=== PATIENT | male | born 1990 | race Caucasian/White ===

== ENCOUNTER 2017-07-27 03:23 | Emergency (ER) | payer BC ==
[2017-07-27] MEDS ORDERED: Lidocaine/EPINEPHrine/Tetracaine Soln 1 ML TOP STA (03:57)
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
[2017-07-27] MEDS ORDERED: Lidocaine 1% with EPINEPHrine 1:100,000 20 ML MDV INJECT ONE (06:43)
[2017-07-27] MEDS ORDERED: Bupivacaine 0.5%/EPINEPHrine 1:200,000 30 ML SDV INJECT ONE (06:44)
[2017-07-27] MEDS ORDERED: Bupivacaine 0.5% 10 ML SDV INJECT ONE (06:51)
== END 2017-07-27 08:10 | disposition home or self-care (01) ==
LOC: JD.ED 03:23
DX: S01.312A Laceration without foreign body of left ear, initial encounter (principal); F17.290 Nicotine dependence, other tobacco product, uncomplicated; Z79.899 Other long term (current) drug therapy; Y04.0XXA Assault by unarmed brawl or fight, initial encounter
CPT/HCPCS: 12011; 99283; A9270; 99282